=== PATIENT | male | born 1995 | race Caucasian/White ===

== ENCOUNTER 2017-01-01 13:25 | Emergency (ER) | payer MEDICAID ==
[~2017-01-01] VITALS: Ht 180.3 cm; Wt 73.9 kg
[2017-01-01 13:27] VITALS: BP 131/59
--- NOTE | 2017-01-01 16:40 | NUR ---
PATIENT PRESENTS TO ED WITH SORETHROAT,FOR 3 DAYS. DENIES N/V/D; SKIN IS PINK/WARM/DRY; AAOX4 WITH EVEN AND STEADY GAIT; LUNGS CLEAR BL; HR EVEN AND REGULAR; PT DENIES ANY FEVER, CP, SOB, OR COUGH AT THIS TIME; PATIENT STATES PAIN OF 6/10 AT THIS TIME; VSS; PATIENT POSITIONED FOR COMFORT; HOB ELEVATED; BEDRAILS UP X2; BED DOWN. ER MD MADE AWARE OF PT STATUS.
--- NOTE | 2017-01-01 17:00 | NUR ---
AAO PT AMBULATES TO THE RESTROOM
[2017-01-01] MEDS ORDERED: KETOROLAC 60 MG/2 ML VIAL IM ONE (17:15)
[2017-01-01] MEDS ORDERED: PENICILLIN G BENZATHINE L-A 1.2 MU/2 ML SYR IM ONE (17:15)
[2017-01-01] MEDS ORDERED: PENICILLIN G BENZATHINE L-A 2.4 MU/4 ML SYR IM ONE (17:30)
--- NOTE | 2017-01-01 17:41 | NUR ---
WASTED 2ML BICILIN 1A
[2017-01-01 18:09] VITALS: BP 132/62
--- NOTE | 2017-01-01 18:09 | NUR ---
Patient discharged with v/s stable. Written and verbal after care instructions given and explained. Patient alert, oriented and verbalized understanding of instructions. Ambulatory with steady gait. All questions addressed prior to discharge. ID band removed. Patient advised to follow up with PMD. Rx of NORCO, PREDNISONE, MOTRINE given. Patient educated on indication of medication including possible reaction and side effects. Opportunity to ask questions provided and answered.
== END 2017-01-01 18:09 | disposition home or self-care (01) ==
LOC: MED 13:25
DX: J02.0 Streptococcal pharyngitis (principal); F17.200 Nicotine dependence, unspecified, uncomplicated
CPT/HCPCS: 96372; 99284; J0561; J1885

== ENCOUNTER 2017-01-19 22:36 | Emergency (ER) | payer MEDICAID ==
[~2017-01-19] VITALS: Ht 177.8 cm; Wt 72.6 kg
[2017-01-19 22:49] VITALS: BP 140/75
--- NOTE | 2017-01-19 23:29 | NUR ---
PT TAKEN TO OF2
--- NOTE | 2017-01-19 23:48 | NUR ---
PT BIB SELF C/O SORETHROAT,FOR 2 DAYS S/P DRY COUGH. PT DENIES N/V/D; SKIN IS INTACT, PINK/WARM/DRY; AAOX4, PERRL, WITH EVEN AND STEADY GAIT; LUNGS CLEAR BL, BREATHING UNLABORED; HR EVEN AND REGULAR, BL PERIPHERAL PULSES PRESENT; BS ACTIVE X4, NO TENDERNESS TO PALPATION. PT DENIES ANY FEVER, CP, SOB AT THIS TIME; PT STATES 5/10 PAIN AT THIS TIME; VSS; PATIENT POSITIONED FOR COMFORT; HOB ELEVATED; BEDRAILS UP X2; BED DOWN. ER MD TO JASEN, ALL ORDERS EXECUTED
--- NOTE | 2017-01-20 00:14 | NUR ---
Dr. Choi evaluating patient
[2017-01-20] MEDS ORDERED: IBUPROFEN 400 MG TAB PO ONE (00:25)
--- NOTE | 2017-01-20 00:32 | NUR ---
THROAT SWAB X2 SENT TO LAB
[2017-01-20 00:42] VITALS: BP 133/72
--- NOTE | 2017-01-20 00:43 | NUR ---
Patient discharged with v/s stable. Written and verbal after care instructions given and explained. Patient alert, oriented and verbalized understanding of instructions. Ambulatory with steady gait. All questions addressed prior to discharge. ID band removed. Patient advised to follow up with PMD. Rx of NAPROSYN 375MG given. Patient educated on indication of medication including possible reaction and side effects. Opportunity to ask questions provided and answered.
== END 2017-01-20 00:43 | disposition home or self-care (01) ==
LOC: MED 22:36
DX: J02.9 Acute pharyngitis, unspecified (principal); R03.0 Elevated blood-pressure reading, without diagnosis of hypertension
CPT/HCPCS: 87081; 99284